=== PATIENT | male | born 1955 | race African-American/Black ===

== ENCOUNTER 2024-09-26 23:42 | Emergency (ER) | payer MEDICARE ==
[2024-09-27 00:43] LABS: Base Excess-Venous 6.5 mmol/L (-2.0 to 3.0); Bicarbonate (HCO3v) 33.4 mmol/L (22.0-28.0); CO2 Tension (PvCO2) 63.9 mmHg (42.0-51.0); Calcium, Ionized 1.36 mmol/L (1.15-1.33); Chloride 105 mmol/L (98-107); Hemoglobin - Calc 7.5 g/dL (14.0-18.0); Potassium 3.5 mmol/L (3.5-5.1); Sodium 144 mmol/L (138-145); T. Carbon Dioxide 35.3 mmol/L (22.0-28.0)
[2024-09-27 00:45] LABS: Prothrombin Time 13.4 sec (12.0-14.7)
[2024-09-27 00:46] LABS: PTT 34.3 sec (22.9-36.1)
[2024-09-27 00:54] LABS: ALT (SGPT) 8 U/L (Less than 45); AST (SGOT) 17 U/L (11-34); Albumin 3.5 g/dL (3.1-4.5); Alkaline Phosphatase 108 U/L (40-110); Anion Gap 14 mmol/L (10-20); BUN (Urea Nitrogen) 24 mg/dL (8.4-25.7); Bilirubin, Total 0.2 mg/dL (0.3-1.2); Calc. Creatinine Clearance 0 mL/min (70-130); Calcium 9.8 mg/dL (7.8-10.44); Carbon Dioxide 24 mmol/L (23-31); Chloride 107 mmol/L (98-107); Estimated GFR 77; Glucose 109 mg/dL (80-115); Potassium 3.6 mmol/L (3.5-5.1); Protein, Total 7.5 g/dL (5.8-8.1); Sodium 141 mmol/L (136-145)
[2024-09-27 01:24] LABS: Platelet Count 147 10x3/uL (150-450)
[2024-09-27 01:30] LABS: #Basophils Less than 0.03 10x3/uL (0.0-0.2); #Monocytes 0.56 10x3/uL (0.0-1.1); #Neutrophils 4.63 10x3/uL (1.5-8.4); %Basophils 0.2 % (0.0-2.0); %Eosinophils 1.6 % (0.0-6.0); %Lymphocytes 16.7 % (18.0-47.0); %Monocytes 8.8 % (0.0-10.0); %Neutrophils 72.4 % (40.0-75.0); Hematocrit 20.9 % (38.8-50.0); Hemoglobin 5.7 g/dL (13.5-17.5); Mean Corpuscular HGB CONC 27.3 g/dL (32.0-36.0); Mean Corpuscular Hemoglobin 20.1 pg (27.0-33.0); Mean Corpuscular Volume 73.6 fL (81.2-95.1); Mean Platelet Volume 11.1 fL (7.4-10.4); RBC Distribution Width 18.4 % (11.5-14.5); Red Blood Cell (RBC) Count 2.84 10x6/uL (4.32-5.72); White Blood Cell (WBC) Count 6.39 10x3/uL (3.5-10.5)
[2024-09-27 01:45] LABS: #Lymphocytes 1.1 10x3/uL (0.7-4.9)
[2024-09-27 02:40] LABS: Anisocytosis SLIGHT = 6-15 cells (100X) (0-5/hpf); Elliptocytes SLIGHT = 2-5 cells (100X) (0-1/hpf); Hypochromia MODERATE=16-30 cells (100X) (0-5/hpf); MDiff Complete? YES; Microcytosis MODERATE=15-30 cells (100X) (0-5/hpf); Ovalocytes SLIGHT = 2-5 cells (100X) (0-1/hpf); Platelet Adequacy Comment Appears Adequate; Reflex for Review?? YES; Tear Drops SLIGHT = 2-5 cells (100X) (0-1/hpf)
[2024-09-27 07:16] LABS: Red Blood Cell (RBC) Count 3.22 mill/uL (4.70-6.10)
[2024-09-27 07:17] LABS: #Lymphocytes 0.7 thou/uL (1.20-3.40); #Neutrophils 2.8 thou/uL (1.40-6.50); %Basophils 0.5 % (0.0-1.0); %Lymphocytes 19.7 % (21.0-51.0); %Monocytes 9.4 % (0.0-10.0); %Neutrophils 68.4 % (42.0-75.0); Manual Diff?? NO; Mean Corpuscular HGB CONC 29.1 g/dL (32.0-36.0); Mean Corpuscular Hemoglobin 21.7 pg (27.0-31.0); Mean Corpuscular Volume 74.6 fl (78.0-98.0); Mean Platelet Volume 7.1 fL (7.4-10.4); Platelet Count 110 10x3/uL (130-400); RBC Distribution Width 18.1 % (11.5-14.5)
[2024-09-27 07:18] LABS: #Eosinophils 0.1 thou/uL (0.0-0.7); #Monocytes 0.4 thou/uL (0.11-0.59)
[2024-09-27] MEDS ORDERED: Furosemide 20 MG (2 mL) VIAL ONE (07:40)
[2024-09-27 08:47] LABS: Bilirubin Negative (Negative); Blood, Urine Negative (Negative); Clarity Clear (Clear); Glucose, Urine (Dipstick) Negative (Negative); Ketone, Urine Negative (Negative); Leukocyte Negative (Negative); Nitrite Negative (Negative); Protein, Urine (Dipstick) Negative (Neg-Trace); Urobilinogen 0.2 mg/dL (Less than 2)
[2024-09-27 13:28] LABS: Iron 21 ug/dL (65-175); Iron Binding Capacity, Total 465 mcg/dL (261-462)
== END 2024-09-27 13:13 | disposition home or self-care (01) ==
LOC: NAV ERS 23:42
DX: D50.9 Iron deficiency anemia, unspecified (principal); I25.2 Old myocardial infarction; I10 Essential (primary) hypertension; F17.210 Nicotine dependence, cigarettes, uncomplicated
CPT/HCPCS: 36415; 36430; 80053; 81001; 82274; 82330; 82435; 82607; 82746; 82803; 83540; 83550; 84132; 84295; 85014; 85025; 85046; 85060; 85610; 85730; 86850; 86900; 86901; 96374; J1940; P9016